=== PATIENT | female | born 1960 | race Caucasian/White ===

== ENCOUNTER → 2023-07-14 07:48 | Outpatient (REF) | payer BC, SELFPAY | LOC: WDC 07:48 | PROVIDERS: ATTENDING PHYSICIAN Family Medicine | DX: R92.2 Inconclusive mammogram (principal) | CPT/HCPCS: 76641 ==

== ENCOUNTER → 2024-03-29 06:25 | Day surgery (SDC) | payer BC, SELFPAY | LOC: GI 06:25 | PROVIDERS: ATTENDING PHYSICIAN Internal Medicine Gastroenterology; FAMILY PHYSICIAN Family Medicine | PROC: 0DBH8ZX Excision of Cecum, Via Natural or Artificial Opening Endoscopic, Diagnostic (ICD-10-PCS; 2024-03-29) | PROC: 0DBL8ZX Excision of Transverse Colon, Via Natural or Artificial Opening Endoscopic, Diagnostic (ICD-10-PCS; 2024-03-29) | PROC: 0DBN8ZX Excision of Sigmoid Colon, Via Natural or Artificial Opening Endoscopic, Diagnostic (ICD-10-PCS; 2024-03-29) | DX: Z12.11 Encounter for screening for malignant neoplasm of colon (principal); Z86.0100 Personal history of colon polyps, unspecified; R19.7 Diarrhea, unspecified; D12.2 Benign neoplasm of ascending colon; D12.5 Benign neoplasm of sigmoid colon; D12.0 Benign neoplasm of cecum; K64.0 First degree hemorrhoids | CPT/HCPCS: 45385; 45380; 88305 ==

== ENCOUNTER → 2024-06-18 12:25 | Outpatient (REF) | payer BC, SELFPAY | LOC: WDC 12:25 | PROVIDERS: ATTENDING PHYSICIAN Family Medicine | DX: Z12.31 Encounter for screening mammogram for malignant neoplasm of breast (principal) | CPT/HCPCS: 77063; 77067 ==

== ENCOUNTER → 2024-08-23 08:29 | Outpatient (REF) | payer BC, SELFPAY | LOC: HWRAD 08:29 | PROVIDERS: ATTENDING PHYSICIAN Internal Medicine Critical Care Medicine; FAMILY PHYSICIAN Family Medicine | DX: F17.210 Nicotine dependence, cigarettes, uncomplicated (principal) | CPT/HCPCS: 71271 ==

== ENCOUNTER → 2024-12-09 09:17 | Outpatient (REF) | payer BC, SELFPAY | LOC: WDC 09:17 | PROVIDERS: ATTENDING PHYSICIAN Family Medicine | DX: R92.30 Dense breasts, unspecified (principal) | CPT/HCPCS: 76641 ==